=== PATIENT | male | born 1955 | race Caucasian/White ===

== ENCOUNTER 2020-02-12 17:56 | Emergency (ER) | payer MEDICARE, MEDICAID ==
[~2020-02-12] VITALS: Ht 170.2 cm; Wt 100.0 kg
[2020-02-12] MEDS ORDERED: SODIUM CHLORIDE 0.9% 1,000 ML IV ONE (18:22)
[2020-02-12] MEDS ORDERED: ONDANSETRON HCL 4MG/2ML INJ IV STA (18:22)
[2020-02-12 19:26] LABS: CHLORIDE 98 mEq/L (98-107)
[2020-02-12 19:27] LABS: INR 1.1; PROTHROMBIN TIME 12.2 sec (9.6-11.0)
[2020-02-12 19:44] LABS: ETHANOL BLOOD 375 mg/dL
[2020-02-12 20:12] LABS: HEMOGLOBIN. 13.4 g/dL (14.0-18.0); MEAN CORPUSCULAR HEMOGLOBIN 34.3 pg (28.0-32.0); MEAN CORPUSCULAR VOLUME 97.4 fL (80.0-94.0); MEAN PLATELET VOLUME 11.1 fl (7.4-10.4); PLATELET 53 x1000/uL (130-400); RED CELL DISTRIBUTION WIDTH 14.3 % (11.6-14.6)
[2020-02-12 21:05] LABS: *BENZODIAZEPINES SCREEN URINE NEGATIVE (NEGATIVE); *COCAINE SCREEN URINE NEGATIVE (NEGATIVE)
[2020-02-12 21:06] LABS: PLATELET ESTIMATE MARKEDLY DECREASED
[2020-02-12 21:06] LABS: *AMPHETAMINES SCREEN URINE NEGATIVE (NEGATIVE); *BARBITURATES SCREEN URINE NEGATIVE (NEGATIVE); CANNABINOID URINE SCREEN NEGATIVE (NEGATIVE); METHADONE URINE SCREEN NEGATIVE (NEGATIVE); OPIATES URINE SCREEN NEGATIVE (NEGATIVE); PHENCYCLIDINE URINE SCREEN NEGATIVE (NEGATIVE)
[2020-02-13] MEDS ORDERED: ACETAMINOPHEN 500MG TABLET PO ONE (04:30)
[2020-02-13 05:00] VITALS: BP 135/74
== END 2020-02-13 05:48 | disposition home or self-care (01) ==
LOC: ER 17:56 → EDBD 17:56 → ER 02-13 05:48
DX: F10.229 Alcohol dependence with intoxication, unspecified (principal); R94.5 Abnormal results of liver function studies; R79.89 Other specified abnormal findings of blood chemistry; R41.82 Altered mental status, unspecified; Y90.8 Blood alcohol level of 240 mg/100 ml or more
CPT/HCPCS: 36415; 70450; 71045; 80053; 80305; 80307; 80320; 80329; 82962; 85025; 85610; 96361; 96374; 99285; J2405; J7030; G0480

== ENCOUNTER 2020-04-29 19:00 | Inpatient (IN) | payer MEDICARE, MEDICAID ==
[~2020-04-29] VITALS: Ht 170.2 cm; Wt 74.8 kg
[2020-04-29 20:00] VITALS: BP 104/63
[2020-04-29] MEDS ORDERED: DEXTROSE 50% WATER 50ML SYRINGE IV PRN (20:45)
[2020-04-29] MEDS ORDERED: TEMAZEPAM 15MG CAPSULE PO PRN (20:45)
[2020-04-29] MEDS: INSULIN LISPRO 100 UNITS/ML SUBCUT SCH (21:30)
[2020-04-29] MEDS: AMLODIPINE 5MG TABLET PO SCH (22:00)
[2020-04-29] MEDS: BLOOD SUGAR DIAGNOSTIC STRIP TEST SCH (22:07)
[2020-04-29] MEDS ORDERED: MAGNESIUM 4 G PREMIX 100 ML IV NR (22:30)
[2020-04-30 06:26] LABS: CHLORIDE 107 mEq/L (98-107)
[2020-04-30] MEDS: NYSTATIN POWDER 15GM TOP SCH ×3 (06:29→21:21)
[2020-04-30] MEDS: INSULIN LISPRO 100 UNITS/ML SUBCUT SCH ×4 (06:29→21:58)
[2020-04-30] MEDS: BLOOD SUGAR DIAGNOSTIC STRIP TEST SCH ×4 (06:29→21:19)
[2020-04-30 06:37] LABS: PHOSPHORUS 2.6 mg/dL (2.5-4.9)
[2020-04-30 06:46] LABS: CLARITY URINE CLEAR (CLEAR); COLOR URINE YELLOW (YELLOW); KETONES URINE NEGATIVE (NEGATIVE); LEUKOCYTE ESTERASE URINE TRACE (NEGATIVE); NITRITE URINE NEGATIVE (NEGATIVE); OCCULT BLOOD URINE 1+ (NEGATIVE); PROTEIN URINE NEGATIVE (NEGATIVE); SPECIFIC GRAVITY URINE 1.009 (1.005-1.030); UROBILINOGEN URINE 0.2 E.U./dL (0.2-1.0)
[2020-04-30 07:59] LABS: EOSINOPHILS % 3.6 % (0.0-5.0); HEMATOCRIT. 37.7 % (42.0-52.0); HEMOGLOBIN. 13.4 g/dL (14.0-18.0); LYMPHOCYTES % 44.2 % (20.0-50.0); MEAN CORPUSCULAR HEMOGLOBIN 33.3 pg (28.0-32.0); MEAN CORPUSCULAR VOLUME 93.3 fL (80.0-94.0); MEAN PLATELET VOLUME 9.4 fl (7.4-10.4); NEUTROPHILS % 40.2 % (40.0-76.0); PLATELET 115 x1000/uL (130-400); RED BLOOD CELL COUNT 4.04 mill/uL (4.7-6.1); RED CELL DISTRIBUTION WIDTH 12.9 % (11.6-14.6)
[2020-04-30] MEDS: FOLIC ACID 1MG TABLET PO SCH (09:12)
[2020-04-30] MEDS: TAMSULOSIN HCL 0.4MG SR CAPSULE PO SCH (09:12)
[2020-04-30] MEDS: THIAMINE HCL 100MG TABLET PO SCH (09:12)
[2020-04-30] MEDS: FINASTERIDE 5MG TABLET PO SCH (09:13)
[2020-04-30] MEDS: AMLODIPINE 5MG TABLET PO SCH ×2 (09:13→21:22)
[2020-04-30] MEDS: ZINC SULFATE 220 MG ( 50 ) CAPSULE PO SCH (09:13)
[2020-04-30] MEDS: ASCORBIC ACID 500 MG TABLET PO SCH (09:13)
[2020-04-30] MEDS: INSULIN GLARGINE UD 100 UNITS/ML SYR SUBCUT SCH (09:39)
[2020-04-30 09:40] VITALS: BP 119/67
[2020-04-30] MEDS ORDERED: MAGNESIUM 4 G PREMIX 100 ML IV NR (14:00)
[2020-04-30] MEDS ORDERED: NYSTATIN POWDER 15GM TOP SCH (18:45)
[2020-04-30 20:00] VITALS: BP 116/62
[2020-05-01 05:46] LABS: BASOPHILS % 1.3 % (0.0-2.0); EOSINOPHILS % 3.7 % (0.0-5.0); HEMOGLOBIN. 13.3 g/dL (14.0-18.0); LYMPHOCYTES % 42.9 % (20.0-50.0); MEAN CORPUSCULAR HEMOGLOBIN 33.1 pg (28.0-32.0); MEAN CORPUSCULAR VOLUME 92.3 fL (80.0-94.0); MEAN PLATELET VOLUME 9.2 fl (7.4-10.4); MONOCYTES % 8.7 % (2.0-8.0); NEUTROPHILS % 43.4 % (40.0-76.0); PLATELET 135 x1000/uL (130-400); RED BLOOD CELL COUNT 4.01 mill/uL (4.7-6.1); RED CELL DISTRIBUTION WIDTH 12.8 % (11.6-14.6)
[2020-05-01 06:08] LABS: CHLORIDE 106 mEq/L (98-107)
[2020-05-01] MEDS: BLOOD SUGAR DIAGNOSTIC STRIP TEST SCH ×4 (06:13→21:17)
[2020-05-01 06:14] LABS: PHOSPHORUS 2.5 mg/dL (2.5-4.9)
[2020-05-01] MEDS: INSULIN LISPRO 100 UNITS/ML SUBCUT SCH ×4 (06:22→22:14)
[2020-05-01 08:14] VITALS: BP 116/76
[2020-05-01] MEDS: ZINC SULFATE 220 MG ( 50 ) CAPSULE PO SCH (09:01)
[2020-05-01] MEDS: TAMSULOSIN HCL 0.4MG SR CAPSULE PO SCH (09:01)
[2020-05-01] MEDS: ACETAMINOPHEN 650MG/20.3ML UDC PO PRN (09:01)
[2020-05-01] MEDS: THIAMINE HCL 100MG TABLET PO SCH (09:01)
[2020-05-01] MEDS: FINASTERIDE 5MG TABLET PO SCH (09:01)
[2020-05-01] MEDS: AMLODIPINE 5MG TABLET PO SCH ×2 (09:01→21:17)
[2020-05-01] MEDS: FOLIC ACID 1MG TABLET PO SCH (09:01)
[2020-05-01] MEDS: ASCORBIC ACID 500 MG TABLET PO SCH (09:01)
[2020-05-01] MEDS: NYSTATIN POWDER 15GM TOP SCH ×2 (09:02→21:18)
[2020-05-01] MEDS: INSULIN GLARGINE UD 100 UNITS/ML SYR SUBCUT SCH (11:47)
[2020-05-01] MEDS: MICAFUNGIN 100 MG in SODIUM CHLORIDE 0.9% 100 ML IV SCH (19:42)
[2020-05-01 20:00] VITALS: BP 110/71
[2020-05-02] MEDS: INSULIN LISPRO 100 UNITS/ML SUBCUT SCH ×4 (06:28→22:27)
[2020-05-02] MEDS: BLOOD SUGAR DIAGNOSTIC STRIP TEST SCH ×4 (06:28→21:31)
[2020-05-02 07:52] VITALS: BP 112/56
[2020-05-02 08:04] LABS: BASOPHILS % 0.9 % (0.0-2.0); EOSINOPHILS % 3.3 % (0.0-5.0); HEMATOCRIT. 37.6 % (42.0-52.0); HEMOGLOBIN. 13.2 g/dL (14.0-18.0); LYMPHOCYTES % 40.1 % (20.0-50.0); MEAN CORPUSCULAR HEMOGLOBIN 32.7 pg (28.0-32.0); MEAN CORPUSCULAR VOLUME 93.1 fL (80.0-94.0); MEAN PLATELET VOLUME 9.2 fl (7.4-10.4); MONOCYTES % 6.3 % (2.0-8.0); NEUTROPHILS % 49.4 % (40.0-76.0); PLATELET 168 x1000/uL (130-400); RED BLOOD CELL COUNT 4.04 mill/uL (4.7-6.1); RED CELL DISTRIBUTION WIDTH 12.9 % (11.6-14.6)
[2020-05-02] MEDS: AMLODIPINE 5MG TABLET PO SCH ×2 (08:19→21:20)
[2020-05-02] MEDS: FINASTERIDE 5MG TABLET PO SCH (08:19)
[2020-05-02] MEDS: THIAMINE HCL 100MG TABLET PO SCH (08:19)
[2020-05-02] MEDS: ASCORBIC ACID 500 MG TABLET PO SCH (08:19)
[2020-05-02] MEDS: FOLIC ACID 1MG TABLET PO SCH (08:19)
[2020-05-02] MEDS: TAMSULOSIN HCL 0.4MG SR CAPSULE PO SCH (08:19)
[2020-05-02] MEDS: ZINC SULFATE 220 MG ( 50 ) CAPSULE PO SCH (08:19)
[2020-05-02] MEDS: NYSTATIN POWDER 15GM TOP SCH ×2 (08:20→21:21)
[2020-05-02 08:28] LABS: CHLORIDE 106 mEq/L (98-107)
[2020-05-02 08:35] LABS: PHOSPHORUS 2.6 mg/dL (2.5-4.9)
[2020-05-02] MEDS: INSULIN GLARGINE UD 100 UNITS/ML SYR SUBCUT SCH (09:21)
[2020-05-02] MEDS: MICAFUNGIN 100 MG in SODIUM CHLORIDE 0.9% 100 ML IV SCH (17:23)
[2020-05-02 20:00] VITALS: BP 119/69
[2020-05-02] MEDS ORDERED: MAGNESIUM 2 G PREMIX 50 ML IV NR (20:00)
[2020-05-03] MEDS: INSULIN LISPRO 100 UNITS/ML SUBCUT SCH ×4 (05:39→21:00)
[2020-05-03] MEDS: BLOOD SUGAR DIAGNOSTIC STRIP TEST SCH ×4 (05:39→21:01)
[2020-05-03 07:10] LABS: BASOPHILS % 1.1 % (0.0-2.0); EOSINOPHILS % 3.9 % (0.0-5.0); HEMATOCRIT. 35.6 % (42.0-52.0); HEMOGLOBIN. 12.6 g/dL (14.0-18.0); LYMPHOCYTES % 44.1 % (20.0-50.0); MEAN CORPUSCULAR HEMOGLOBIN 32.7 pg (28.0-32.0); MEAN CORPUSCULAR VOLUME 92.4 fL (80.0-94.0); MEAN PLATELET VOLUME 8.9 fl (7.4-10.4); NEUTROPHILS % 45.9 % (40.0-76.0); PLATELET 175 x1000/uL (130-400); RED BLOOD CELL COUNT 3.85 mill/uL (4.7-6.1); RED CELL DISTRIBUTION WIDTH 12.8 % (11.6-14.6)
[2020-05-03 07:51] LABS: CHLORIDE 105 mEq/L (98-107)
[2020-05-03 07:57] LABS: PHOSPHORUS 2.6 mg/dL (2.5-4.9)
[2020-05-03 08:10] VITALS: BP 132/76
[2020-05-03] MEDS: THIAMINE HCL 100MG TABLET PO SCH (09:46)
[2020-05-03] MEDS: FOLIC ACID 1MG TABLET PO SCH (09:46)
[2020-05-03] MEDS: TAMSULOSIN HCL 0.4MG SR CAPSULE PO SCH (09:46)
[2020-05-03] MEDS: ASCORBIC ACID 500 MG TABLET PO SCH (09:46)
[2020-05-03] MEDS: FINASTERIDE 5MG TABLET PO SCH (09:46)
[2020-05-03] MEDS: ZINC SULFATE 220 MG ( 50 ) CAPSULE PO SCH (09:46)
[2020-05-03] MEDS: AMLODIPINE 5MG TABLET PO SCH ×2 (09:46→20:53)
[2020-05-03] MEDS: NYSTATIN POWDER 15GM TOP SCH ×2 (09:52→20:52)
[2020-05-03] MEDS: INSULIN GLARGINE UD 100 UNITS/ML SYR SUBCUT SCH (10:01)
[2020-05-03] MEDS ORDERED: MAGNESIUM 2 G PREMIX 50 ML IV ONE (17:30)
[2020-05-03] MEDS: MICAFUNGIN 100 MG in SODIUM CHLORIDE 0.9% 100 ML IV SCH (17:30)
[2020-05-03 20:26] VITALS: BP 124/67
[2020-05-04] MEDS: BLOOD SUGAR DIAGNOSTIC STRIP TEST SCH ×4 (05:40→21:25)
[2020-05-04 06:52] LABS: BASOPHILS % 1.3 % (0.0-2.0); EOSINOPHILS % 3.9 % (0.0-5.0); HEMATOCRIT. 35.6 % (42.0-52.0); HEMOGLOBIN. 12.5 g/dL (14.0-18.0); LYMPHOCYTES % 46.3 % (20.0-50.0); MEAN CORPUSCULAR HEMOGLOBIN 32.6 pg (28.0-32.0); MEAN CORPUSCULAR VOLUME 92.7 fL (80.0-94.0); MEAN PLATELET VOLUME 8.5 fl (7.4-10.4); MONOCYTES % 4.8 % (2.0-8.0); NEUTROPHILS % 43.7 % (40.0-76.0); PLATELET 190 x1000/uL (130-400); RED BLOOD CELL COUNT 3.85 mill/uL (4.7-6.1)
[2020-05-04 06:54] LABS: CHLORIDE 108 mEq/L (98-107)
[2020-05-04 08:08] VITALS: BP 110/67
[2020-05-04] MEDS: INSULIN LISPRO 100 UNITS/ML SUBCUT SCH ×4 (09:00→21:00)
[2020-05-04] MEDS: NYSTATIN POWDER 15GM TOP SCH ×2 (09:05→21:25)
[2020-05-04] MEDS: FOLIC ACID 1MG TABLET PO SCH (09:06)
[2020-05-04] MEDS: ZINC SULFATE 220 MG ( 50 ) CAPSULE PO SCH (09:06)
[2020-05-04] MEDS: AMLODIPINE 5MG TABLET PO SCH ×2 (09:06→21:00)
[2020-05-04] MEDS: TAMSULOSIN HCL 0.4MG SR CAPSULE PO SCH (09:06)
[2020-05-04] MEDS: THIAMINE HCL 100MG TABLET PO SCH (09:07)
[2020-05-04] MEDS: ASCORBIC ACID 500 MG TABLET PO SCH (09:07)
[2020-05-04] MEDS: FINASTERIDE 5MG TABLET PO SCH (09:07)
[2020-05-04] MEDS: INSULIN GLARGINE UD 100 UNITS/ML SYR SUBCUT SCH (10:35)
[2020-05-04] MEDS: MICAFUNGIN 100 MG in SODIUM CHLORIDE 0.9% 100 ML IV SCH (17:29)
[2020-05-04 20:00] VITALS: BP 108/62
[2020-05-05] MEDS: BLOOD SUGAR DIAGNOSTIC STRIP TEST SCH ×4 (06:23→21:24)
[2020-05-05] MEDS: INSULIN LISPRO 100 UNITS/ML SUBCUT SCH ×4 (06:25→21:54)
[2020-05-05 08:00] VITALS: BP 127/74
[2020-05-05] MEDS: ACETAMINOPHEN 650MG/20.3ML UDC PO PRN (09:01)
[2020-05-05] MEDS: FOLIC ACID 1MG TABLET PO SCH (09:02)
[2020-05-05] MEDS: ASCORBIC ACID 500 MG TABLET PO SCH (09:02)
[2020-05-05] MEDS: FINASTERIDE 5MG TABLET PO SCH (09:02)
[2020-05-05] MEDS: AMLODIPINE 5MG TABLET PO SCH ×2 (09:02→21:00)
[2020-05-05] MEDS: ZINC SULFATE 220 MG ( 50 ) CAPSULE PO SCH (09:02)
[2020-05-05] MEDS: TAMSULOSIN HCL 0.4MG SR CAPSULE PO SCH (09:03)
[2020-05-05] MEDS: THIAMINE HCL 100MG TABLET PO SCH (09:03)
[2020-05-05] MEDS: NYSTATIN POWDER 15GM TOP SCH ×2 (09:05→21:53)
[2020-05-05] MEDS: INSULIN GLARGINE UD 100 UNITS/ML SYR SUBCUT SCH (11:46)
[2020-05-05] MEDS: MICAFUNGIN 100 MG in SODIUM CHLORIDE 0.9% 100 ML IV SCH (17:51)
[2020-05-05 20:00] VITALS: BP 114/64
[2020-05-06] MEDS: BLOOD SUGAR DIAGNOSTIC STRIP TEST SCH ×4 (06:14→21:37)
[2020-05-06 06:50] LABS: BASOPHILS % 1.7 % (0.0-2.0); EOSINOPHILS % 4.9 % (0.0-5.0); HEMATOCRIT. 35.1 % (42.0-52.0); HEMOGLOBIN. 12.6 g/dL (14.0-18.0); LYMPHOCYTES % 42.2 % (20.0-50.0); MEAN CORPUSCULAR VOLUME 91.6 fL (80.0-94.0); MEAN PLATELET VOLUME 8.7 fl (7.4-10.4); MONOCYTES % 6.6 % (2.0-8.0); NEUTROPHILS % 44.6 % (40.0-76.0); PLATELET 190 x1000/uL (130-400); RED BLOOD CELL COUNT 3.83 mill/uL (4.7-6.1); RED CELL DISTRIBUTION WIDTH 12.8 % (11.6-14.6)
[2020-05-06 07:01] LABS: CHLORIDE 107 mEq/L (98-107)
[2020-05-06 07:09] LABS: PHOSPHORUS 3.2 mg/dL (2.5-4.9)
[2020-05-06 08:00] VITALS: BP 109/66
[2020-05-06] MEDS: AMLODIPINE 5MG TABLET PO SCH ×2 (08:33→21:00)
[2020-05-06] MEDS: FOLIC ACID 1MG TABLET PO SCH (08:34)
[2020-05-06] MEDS: ZINC SULFATE 220 MG ( 50 ) CAPSULE PO SCH (08:34)
[2020-05-06] MEDS: ASCORBIC ACID 500 MG TABLET PO SCH (08:34)
[2020-05-06] MEDS: FINASTERIDE 5MG TABLET PO SCH (08:34)
[2020-05-06] MEDS: TAMSULOSIN HCL 0.4MG SR CAPSULE PO SCH (08:34)
[2020-05-06] MEDS: THIAMINE HCL 100MG TABLET PO SCH (08:35)
[2020-05-06] MEDS: INSULIN LISPRO 100 UNITS/ML SUBCUT SCH ×4 (09:00→22:14)
[2020-05-06] MEDS: INSULIN GLARGINE UD 100 UNITS/ML SYR SUBCUT SCH (10:28)
[2020-05-06] MEDS ORDERED: MAGNESIUM 2 G PREMIX 50 ML IV NR (11:00)
[2020-05-06] MEDS ORDERED: MAGNESIUM 4 G PREMIX 100 ML IV NR (17:00)
[2020-05-06] MEDS: MICAFUNGIN 100 MG in SODIUM CHLORIDE 0.9% 100 ML IV SCH (17:01)
[2020-05-06 20:00] VITALS: BP 109/72
[2020-05-07] MEDS: INSULIN LISPRO 100 UNITS/ML SUBCUT SCH ×2 (05:48→12:19)
[2020-05-07 06:23] LABS: BASOPHILS % 1.2 % (0.0-2.0); CHLORIDE 104 mEq/L (98-107); HEMATOCRIT. 36.3 % (42.0-52.0); HEMOGLOBIN. 12.7 g/dL (14.0-18.0); LYMPHOCYTES % 41.1 % (20.0-50.0); MEAN CORPUSCULAR HEMOGLOBIN 32.6 pg (28.0-32.0); MEAN CORPUSCULAR VOLUME 92.9 fL (80.0-94.0); MEAN PLATELET VOLUME 8.8 fl (7.4-10.4); MONOCYTES % 6.8 % (2.0-8.0); NEUTROPHILS % 46.9 % (40.0-76.0); PLATELET 202 x1000/uL (130-400); RED CELL DISTRIBUTION WIDTH 12.8 % (11.6-14.6)
[2020-05-07 06:30] LABS: PHOSPHORUS 3.2 mg/dL (2.5-4.9)
[2020-05-07] MEDS: BLOOD SUGAR DIAGNOSTIC STRIP TEST SCH ×2 (06:51→11:21)
[2020-05-07 08:00] VITALS: BP 122/60
[2020-05-07] MEDS: AMLODIPINE 5MG TABLET PO SCH (09:12)
[2020-05-07] MEDS: FINASTERIDE 5MG TABLET PO SCH (09:13)
[2020-05-07] MEDS: TAMSULOSIN HCL 0.4MG SR CAPSULE PO SCH (09:13)
[2020-05-07] MEDS: THIAMINE HCL 100MG TABLET PO SCH (09:13)
[2020-05-07] MEDS: FOLIC ACID 1MG TABLET PO SCH (09:13)
[2020-05-07] MEDS: ASCORBIC ACID 500 MG TABLET PO SCH (09:13)
[2020-05-07] MEDS: ZINC SULFATE 220 MG ( 50 ) CAPSULE PO SCH (09:13)
[2020-05-07] MEDS: INSULIN GLARGINE UD 100 UNITS/ML SYR SUBCUT SCH (10:47)
[2020-05-07 13:59] VITALS: BP 122/60
== END 2020-05-07 15:45 | disposition home or self-care (01) | DRG 91 ==
LOC: UNDOADMIN 20:28
PROVIDERS: ADMIT Psychiatry & Neurology Neurology; ATTEND Internal Medicine
DX: G92 Toxic encephalopathy (principal); E11.00 Type 2 diabetes mellitus with hyperosmolarity without nonketotic hyperglycemic-hyperosmolar coma (NKHHC); A41.9 Sepsis, unspecified organism; J69.0 Pneumonitis due to inhalation of food and vomit; N39.0 Urinary tract infection, site not specified; B49 Unspecified mycosis; E46 Unspecified protein-calorie malnutrition; N13.8 Other obstructive and reflux uropathy; N17.9 Acute kidney failure, unspecified; E87.1 Hypo-osmolality and hyponatremia; N18.9 Chronic kidney disease, unspecified; E11.22 Type 2 diabetes mellitus with diabetic chronic kidney disease; I12.9 Hypertensive chronic kidney disease with stage 1 through stage 4 chronic kidney disease, or unspecified chronic kidney disease; N13.9 Obstructive and reflux uropathy, unspecified; F17.210 Nicotine dependence, cigarettes, uncomplicated; E86.0 Dehydration; E11.65 Type 2 diabetes mellitus with hyperglycemia; K70.30 Alcoholic cirrhosis of liver without ascites; N32.0 Bladder-neck obstruction; N40.1 Benign prostatic hyperplasia with lower urinary tract symptoms; Z20.828 Contact with and (suspected) exposure to other viral communicable diseases; Z60.2 Problems related to living alone; F10.10 Alcohol abuse, uncomplicated; E83.42 Hypomagnesemia; G90.8 Other disorders of autonomic nervous system; E83.39 Other disorders of phosphorus metabolism; E87.6 Hypokalemia; Z79.4 Long term (current) use of insulin; Z79.899 Other long term (current) drug therapy; Z68.25 Body mass index [BMI] 25.0-25.9, adult
CPT/HCPCS: 36415; 76770; 80048; 81003; 82040; 82962; 83735; 84100; 85025; 87106; 92523; 93970; 97110; 97112; 97116; 97162; 97166; 97530; 97535; J1815; J2248; J3475; J7050

== ENCOUNTER 2020-06-24 18:36 | Inpatient (IN) | payer MEDICARE, MEDICAID ==
[~2020-06-24] VITALS: Ht 170.2 cm; Wt 72.1 kg
[2020-06-24] MEDS ORDERED: SODIUM CHLORIDE 0.9% 1,000 ML IV ONE ×2 (18:52→19:00)
[2020-06-24] MEDS ORDERED: SODIUM CHLORIDE 0.9% 1000ML BAG (SEPSIS BOLUS) IV ONE (19:00)
[2020-06-24 19:18] LABS: BASOPHILS % 1.1 % (0.0-2.0); EOSINOPHILS % 1.1 % (0.0-5.0); HEMATOCRIT. 38.6 % (42.0-52.0); HEMOGLOBIN. 13.5 g/dL (14.0-18.0); LYMPHOCYTES % 11.5 % (20.0-50.0); MEAN PLATELET VOLUME 9.2 fl (7.4-10.4); NEUTROPHILS % 80.3 % (40.0-76.0); PLATELET 190 x1000/uL (130-400); RED BLOOD CELL COUNT 4.48 mill/uL (4.7-6.1); RED CELL DISTRIBUTION WIDTH 13.3 % (11.6-14.6)
[2020-06-24 19:25] LABS: CHLORIDE 93 mEq/L (98-107)
[2020-06-24 19:28] LABS: INR 1.1; PROTHROMBIN TIME 11.1 sec (9.6-11.0)
[2020-06-24 19:30] LABS: ETHANOL BLOOD < 10 mg/dL
[2020-06-24] MEDS ORDERED: INSULIN REGULAR (HUMULIN R) 300UNITS/3ML IV NR (20:00)
[2020-06-24] MEDS ORDERED: INSULIN REGULAR (DRIP) 100 UNITS in SODIUM CHLORIDE 0.9% 99 ML IV ONE ×2 (20:00→20:30)
[2020-06-24 20:33] LABS: CLARITY URINE CLEAR (CLEAR); COLOR URINE YELLOW (YELLOW); KETONES URINE 1+ (NEGATIVE); LEUKOCYTE ESTERASE URINE 1+ (NEGATIVE); NITRITE URINE NEGATIVE (NEGATIVE); OCCULT BLOOD URINE 1+ (NEGATIVE); PROTEIN URINE NEGATIVE (NEGATIVE); SPECIFIC GRAVITY URINE 1.028 (1.005-1.030); UROBILINOGEN URINE 0.2 E.U./dL (0.2-1.0)
[2020-06-24 20:46] LABS: BG BASE EXCESS -2.6 mmol/L (-2.0-2.0); BG CARBOXYHEMOGLOBIN 0.1 % (0.5-1.5); BG FRACTION INSPIRED OXYGEN 21; BG HCO3 ACT 22.2 mmol/L (22.0-26.0); BG METHEMOGLOBIN 0.2 % (0.0-1.5); BG OXYHEMOGLOBIN 92.7 % (94.0-97.0); BG PCO2 38.5 mmHg (35.0-45.0); BG PH 7.379 (7.350-7.450); BG PO2 69.7 mmHg (75.0-100.0); BG SAMPLE SITE RIGHT BRACHIAL; BG TOTAL HEMOGLOBIN 12.8 g/dL (12.0-18.0); BG VENT MODE ROOM AIR
[2020-06-24 21:01] LABS: *AMPHETAMINES SCREEN URINE NEGATIVE (NEGATIVE); *BARBITURATES SCREEN URINE NEGATIVE (NEGATIVE); *BENZODIAZEPINES SCREEN URINE NEGATIVE (NEGATIVE); *COCAINE SCREEN URINE NEGATIVE (NEGATIVE)
[2020-06-24 21:02] LABS: CANNABINOID URINE SCREEN NEGATIVE (NEGATIVE); METHADONE URINE SCREEN NEGATIVE (NEGATIVE); OPIATES URINE SCREEN NEGATIVE (NEGATIVE); PHENCYCLIDINE URINE SCREEN NEGATIVE (NEGATIVE)
[2020-06-24] MEDS ORDERED: LORAZEPAM 2MG/ML CPJ IV PRN (21:30)
[2020-06-24] MEDS ORDERED: CLONIDINE 0.1MG TABLET PO PRN (21:30)
[2020-06-24] MEDS ORDERED: CEFTRIAXONE 1 G PREMIX 50 ML IV SCH ×2 (21:30→22:00)
[2020-06-24] MEDS ORDERED: HYDRALAZINE 20MG/ML VIAL IV PRN (21:30)
[2020-06-24] MEDS ORDERED: ACETAMINOPHEN 325MG TABLET PO PRN ×2 (21:30)
[2020-06-24] MEDS ORDERED: DIPHENHYDRAMINE 50MG/ML VIAL IV PRN (21:30)
[2020-06-24] MEDS ORDERED: DEXTROSE 50% WATER 50ML SYRINGE IV PRN (21:30)
[2020-06-24] MEDS ORDERED: ONDANSETRON HCL 4MG/2ML INJ IV PRN (21:30)
[2020-06-24] MEDS ORDERED: ZOLPIDEM TARTRATE 5MG TABLET PO PRN (21:30)
[2020-06-24] MEDS ORDERED: MAGNESIUM/ALUMINUM HYDROXIDE/SIMETHICONE 30ML UDC PO PRN (21:30)
[2020-06-24] MEDS ORDERED: THIAMINE HCL 100 MG in SODIUM CHLORIDE 0.9% 49 ML IV NR (22:00)
[2020-06-24] MEDS: SODIUM CHLORIDE 0.9% 1,000 ML IV SCH (22:00)
[2020-06-24] MEDS ORDERED: INSULIN GLARGINE UD 100 UNITS/ML SYR SUBCUT SCH (23:00)
[2020-06-24] MEDS ORDERED: MICAFUNGIN 100 MG in SODIUM CHLORIDE 0.9% 100 ML IV SCH (23:00)
[2020-06-25] VITALS (13 sets, daily range): BP systolic 109–170; BP diastolic 66–87
[2020-06-25] MEDS ORDERED: MAGNESIUM 4 G PREMIX 100 ML IV ONE
[2020-06-25] MEDS: INSULIN GLARGINE UD 100 UNITS/ML SYR SUBCUT SCH ×2 (01:23→21:50)
[2020-06-25] MEDS: MICAFUNGIN 100 MG in SODIUM CHLORIDE 0.9% 100 ML IV SCH (02:46)
[2020-06-25] MEDS: BLOOD SUGAR DIAGNOSTIC STRIP TEST SCH ×4 (05:53→21:44)
[2020-06-25] MEDS: INSULIN LISPRO 100 UNITS/ML SUBCUT SCH ×4 (06:53→21:50)
[2020-06-25] MEDS: SODIUM CHLORIDE 0.9% 1,000 ML IV SCH ×2 (09:39→18:24)
[2020-06-25] MEDS: AMLODIPINE 5MG TABLET PO SCH ×2 (09:40→21:27)
[2020-06-25] MEDS: TAMSULOSIN HCL 0.4MG SR CAPSULE PO SCH (09:41)
[2020-06-25] MEDS: FINASTERIDE 5MG TABLET PO SCH (09:41)
[2020-06-25] MEDS: FAMOTIDINE 20MG/2ML VIAL IV SCH ×2 (09:42→21:26)
[2020-06-25 10:07] LABS: HEMATOCRIT. 34.2 % (42.0-52.0); HEMOGLOBIN. 11.9 g/dL (14.0-18.0); MEAN CORPUSCULAR HEMOGLOBIN 29.8 pg (28.0-32.0); MEAN PLATELET VOLUME 8.9 fl (7.4-10.4); PLATELET 159 x1000/uL (130-400); RED BLOOD CELL COUNT 3.98 mill/uL (4.7-6.1); RED CELL DISTRIBUTION WIDTH 13.5 % (11.6-14.6)
[2020-06-25 10:34] LABS: CHLORIDE 105 mEq/L (98-107)
[2020-06-25 10:40] LABS: PHOSPHORUS 1.7 mg/dL (2.5-4.9)
[2020-06-25 10:45] LABS: PLATELET ESTIMATE NORMAL
[2020-06-25] MEDS ORDERED: POTASSIUM CHLORIDE 20MEQ TABLET SR PO NR (12:30)
[2020-06-25] MEDS ORDERED: POTASSIUM PHOS,M-BASIC-D-BASIC 30 MMOL in DEXT 5% WATER 500 ML IV SCH (14:00)
[2020-06-25] MEDS: CEFTRIAXONE 1,000 MG in DEXTROSE 5% WATER 50 ML IV SCH (21:27)
[2020-06-25] MEDS ORDERED: CEFTRIAXONE 1,000 MG in DEXTROSE 5% WATER 50 ML IV SCH (22:00)
[2020-06-26] VITALS (12 sets, daily range): BP systolic 97–127; BP diastolic 63–76
[2020-06-26] MEDS: SODIUM CHLORIDE 0.9% 1,000 ML IV SCH ×2 (02:52→13:30)
[2020-06-26] MEDS: BLOOD SUGAR DIAGNOSTIC STRIP TEST SCH ×4 (06:45→21:00)
[2020-06-26] MEDS: MICAFUNGIN 100 MG in SODIUM CHLORIDE 0.9% 100 ML IV SCH (08:19)
[2020-06-26] MEDS: FAMOTIDINE 20MG/2ML VIAL IV SCH ×2 (08:21→20:59)
[2020-06-26] MEDS: AMLODIPINE 5MG TABLET PO SCH ×2 (08:21→20:58)
[2020-06-26] MEDS: FINASTERIDE 5MG TABLET PO SCH (08:21)
[2020-06-26] MEDS: TAMSULOSIN HCL 0.4MG SR CAPSULE PO SCH (08:21)
[2020-06-26] MEDS: INSULIN LISPRO 100 UNITS/ML SUBCUT SCH ×4 (08:22→22:12)
[2020-06-26 12:39] LABS: BASOPHILS % 0.9 % (0.0-2.0); EOSINOPHILS % 1.9 % (0.0-5.0); HEMATOCRIT. 36.7 % (42.0-52.0); HEMOGLOBIN. 12.8 g/dL (14.0-18.0); LYMPHOCYTES % 18.3 % (20.0-50.0); MEAN CORPUSCULAR HEMOGLOBIN 30.5 pg (28.0-32.0); MEAN CORPUSCULAR VOLUME 87.2 fL (80.0-94.0); MEAN PLATELET VOLUME 8.8 fl (7.4-10.4); NEUTROPHILS % 73.9 % (40.0-76.0); PLATELET 157 x1000/uL (130-400); RED CELL DISTRIBUTION WIDTH 13.6 % (11.6-14.6)
[2020-06-26 12:47] LABS: CHLORIDE 105 mEq/L (98-107)
[2020-06-26 12:53] LABS: PHOSPHORUS 2.3 mg/dL (2.5-4.9)
[2020-06-26] MEDS: CEFTRIAXONE 1,000 MG in DEXTROSE 5% WATER 50 ML IV SCH (22:14)
[2020-06-26] MEDS: INSULIN GLARGINE UD 100 UNITS/ML SYR SUBCUT SCH (22:28)
[2020-06-27] VITALS (12 sets, daily range): BP systolic 110–140; BP diastolic 52–84
[2020-06-27] MEDS: BLOOD SUGAR DIAGNOSTIC STRIP TEST SCH ×4 (06:50→21:00)
[2020-06-27] MEDS: INSULIN LISPRO 100 UNITS/ML SUBCUT SCH ×4 (07:20→22:52)
[2020-06-27] MEDS: AMLODIPINE 5MG TABLET PO SCH ×2 (09:00→21:30)
[2020-06-27] MEDS: FAMOTIDINE 20MG/2ML VIAL IV SCH ×2 (09:11→21:30)
[2020-06-27] MEDS: MICAFUNGIN 100 MG in SODIUM CHLORIDE 0.9% 100 ML IV SCH (09:11)
[2020-06-27] MEDS: FINASTERIDE 5MG TABLET PO SCH (09:13)
[2020-06-27] MEDS: TAMSULOSIN HCL 0.4MG SR CAPSULE PO SCH (09:13)
[2020-06-27] MEDS: INSULIN GLARGINE UD 100 UNITS/ML SYR SUBCUT SCH (22:53)
[2020-06-27] MEDS: CEFTRIAXONE 1,000 MG in DEXTROSE 5% WATER 50 ML IV SCH (22:58)
[2020-06-28] VITALS (12 sets, daily range): BP systolic 103–133; BP diastolic 66–87
[2020-06-28] MEDS: BLOOD SUGAR DIAGNOSTIC STRIP TEST SCH ×4 (06:28→20:47)
[2020-06-28] MEDS: FAMOTIDINE 20MG/2ML VIAL IV SCH ×2 (08:43→20:47)
[2020-06-28] MEDS: MICAFUNGIN 100 MG in SODIUM CHLORIDE 0.9% 100 ML IV SCH (08:43)
[2020-06-28] MEDS: FINASTERIDE 5MG TABLET PO SCH (08:44)
[2020-06-28] MEDS: TAMSULOSIN HCL 0.4MG SR CAPSULE PO SCH (08:44)
[2020-06-28] MEDS: AMLODIPINE 5MG TABLET PO SCH ×2 (08:49→20:47)
[2020-06-28] MEDS: INSULIN LISPRO 100 UNITS/ML SUBCUT SCH ×4 (08:49→20:49)
[2020-06-28] MEDS: CEFTRIAXONE 1,000 MG in DEXTROSE 5% WATER 50 ML IV SCH (21:49)
[2020-06-28] MEDS: INSULIN GLARGINE UD 100 UNITS/ML SYR SUBCUT SCH (21:50)
[2020-06-29] VITALS (12 sets, daily range): BP systolic 106–151; BP diastolic 38–99
[2020-06-29] MEDS: BLOOD SUGAR DIAGNOSTIC STRIP TEST SCH ×4 (06:23→21:03)
[2020-06-29] MEDS: INSULIN LISPRO 100 UNITS/ML SUBCUT SCH ×4 (07:20→21:10)
[2020-06-29] MEDS: FINASTERIDE 5MG TABLET PO SCH (08:47)
[2020-06-29] MEDS: TAMSULOSIN HCL 0.4MG SR CAPSULE PO SCH (08:47)
[2020-06-29] MEDS: AMLODIPINE 5MG TABLET PO SCH ×2 (08:48→21:03)
[2020-06-29] MEDS: MICAFUNGIN 100 MG in SODIUM CHLORIDE 0.9% 100 ML IV SCH (08:48)
[2020-06-29] MEDS: FAMOTIDINE 20MG/2ML VIAL IV SCH ×2 (08:48→21:03)
[2020-06-29] MEDS ORDERED: LIDOCAINE HCL 1% 20ML VIAL (Pyxis) INJ ONE (10:52)
[2020-06-29] MEDS: CEFTRIAXONE 1,000 MG in DEXTROSE 5% WATER 50 ML IV SCH (21:03)
[2020-06-29] MEDS: INSULIN GLARGINE UD 100 UNITS/ML SYR SUBCUT SCH (21:48)
[2020-06-30] VITALS (12 sets, daily range): BP systolic 109–165; BP diastolic 59–107
[2020-06-30] MEDS: BLOOD SUGAR DIAGNOSTIC STRIP TEST SCH ×4 (06:29→20:55)
[2020-06-30] MEDS: FINASTERIDE 5MG TABLET PO SCH (08:43)
[2020-06-30] MEDS: FAMOTIDINE 20MG/2ML VIAL IV SCH (08:43)
[2020-06-30] MEDS: AMLODIPINE 5MG TABLET PO SCH ×2 (08:43→20:49)
[2020-06-30] MEDS: TAMSULOSIN HCL 0.4MG SR CAPSULE PO SCH (08:43)
[2020-06-30] MEDS: INSULIN LISPRO 100 UNITS/ML SUBCUT SCH ×4 (08:44→20:51)
[2020-06-30] MEDS: CEFTRIAXONE 1,000 MG in DEXTROSE 5% WATER 50 ML IV SCH (20:49)
[2020-06-30] MEDS: INSULIN GLARGINE UD 100 UNITS/ML SYR SUBCUT SCH (20:50)
== END 2020-06-30 23:54 | DRG 871 ==
LOC: ER 18:36 → EDBEDREQ 18:58 → 3WST 19:56 → EDBEDREQSVC 19:59 → EDBEDREQ 19:59 → EDBEDREQTM 19:59 → CANRESERV 21:26 → ENRESERV 21:26 → EDBEDREQSVC 21:53 → ENRESERV 22:08 → ER 23:27
PROVIDERS: ADMIT Internal Medicine; ATTEND Internal Medicine
PROC: 02HV33Z Insertion of Infusion Device into Superior Vena Cava, Percutaneous Approach (ICD-10-PCS; principal; 2020-06-29)
PROC: B548ZZA Ultrasonography of Superior Vena Cava, Guidance (ICD-10-PCS; 2020-06-29)
PROC: B518ZZA Fluoroscopy of Superior Vena Cava, Guidance (ICD-10-PCS; 2020-06-29)
DX: A41.9 Sepsis, unspecified organism (principal); E11.00 Type 2 diabetes mellitus with hyperosmolarity without nonketotic hyperglycemic-hyperosmolar coma (NKHHC); G93.41 Metabolic encephalopathy; E11.10 Type 2 diabetes mellitus with ketoacidosis without coma; N13.30 Unspecified hydronephrosis; N39.0 Urinary tract infection, site not specified; N32.0 Bladder-neck obstruction; I10 Essential (primary) hypertension; E87.6 Hypokalemia; E83.39 Other disorders of phosphorus metabolism; K74.60 Unspecified cirrhosis of liver; F10.10 Alcohol abuse, uncomplicated; Y90.9 Presence of alcohol in blood, level not specified; N40.0 Benign prostatic hyperplasia without lower urinary tract symptoms; Z86.73 Personal history of transient ischemic attack (TIA), and cerebral infarction without residual deficits; Z03.818 Encounter for observation for suspected exposure to other biological agents ruled out
CPT/HCPCS: 36415; 36573; 36600; 71045; 74176; 76937; 80048; 80053; 80305; 80320; 81003; 82140; 82375; 82805; 82962; 83036; 83605; 83735; 84100; 84145; 84484; 85025; 87077; 87186; 87635; 93005; 99285; C1725; J0696; J1200; J1815; J2060; J2248; J3411; J3475; J3490; J7030; J7050; J7060; G0480